=== PATIENT | female | born 1945 | race Caucasian/White ===

== ENCOUNTER 2021-02-18 05:38 | Outpatient (CLI) | payer MEDICARE ==
[~2021-02-18] VITALS: Ht 165.1 cm; Wt 62.6 kg
[2021-02-18] MEDS ORDERED: LISI-729 PO (09:58)
[2021-02-18] MEDS ORDERED: AMLO-250 PO (09:58)
[2021-02-18] MEDS ORDERED: ASPI-999 PO (09:58)
[2021-02-18] MEDS ORDERED: MTP25TSR PO (09:58)
== END 2021-02-18 10:33 | disposition home or self-care (01) ==
LOC: PREOP 05:38
PROVIDERS: ATTEND Surgery
DX: Z01.818 Encounter for other preprocedural examination (principal)

== ENCOUNTER 2021-02-25 10:12 | Day surgery (SDC) | payer MEDICARE ==
[~2021-02-25] VITALS: Ht 165.1 cm; Wt 62.6 kg
[2021-02-25] VITALS (14 sets, daily range): BP systolic 83–142; BP diastolic 49–76
[~2021-02-25 10:12] MED LIST: AMLO-250 PO; ASPI-999 PO; LISI-729 PO; MTP25TSR PO
[2021-02-25] MEDS ORDERED: NS IV 500 ML 500 ML IV PRN (10:30)
[2021-02-25] MEDS ORDERED: MIDAZOLAM 5 MG/5 ML (VERSED) VIAL IV ONE (10:30)
[2021-02-25] MEDS ORDERED: LIDOCAINE JELLY 2% 6 ML SYRINGE MM PRN (10:30)
[2021-02-25] MEDS ORDERED: fentaNYL INJ 100 MCG/2 ML AMP IVP ONE (10:30)
--- NOTE | 2021-02-25 10:31 | Conscious Sedation/ASA ---
Conscious Sedation Pre-Proced Time 10:15 ASA Score 2 For ASA 3 and 4: Consider anesthesia and medical clearance. Also, for patients with a history of failed moderate sedation consider anesthesia. Airway Lungs Heart ASA score ASA 1: a normal healthy patient ASA 2: a patient with a mild systemic disease (mid diabetes, controlled hypertension, obesity ASA 3: a patient with a severe systemic disease that limits activity (angina, COPD, prior Myocardial infarction) ASA 4: a patient with an incapacitating disease that is a constant threat to life (CHF, renal failure) ASA 5: a moribund patient not expected to survive 24 hrs. (ruptured aneurysm) ASA 6: a declared brain- patient whose organs are being harvested. For emergent operations, add the letter E after the classification Mallampati Classification Grade 2 Sedation Plan Analgesia, Amnesia, Plan communicated to team members, Discussed options with patient/fam, Discussed risks with patient/fam The patient is an appropriate candidate to undergo the planned procedure, sedation, and anesthesia. The patient immediately re-assessed prior to indication. ISAIAS HOFFMAN MD Feb 25, 2021 10:31
--- NOTE | 2021-02-25 10:31 | Progress Note-Pre Operative ---
Pre-Operative Progress Note H&P Reviewed The H&P was reviewed, patient examined and no changes noted. Date Seen by Provider: Feb 25, 2021 Time Seen by Provider: 10:15 Date H&P Reviewed: Feb 25, 2021 Time H&P Reviewed: 10:15 Pre-Operative Diagnosis: screening ISAIAS Pisano MD Feb 25, 2021 10:31
--- NOTE | 2021-02-25 10:32 | Discharge Inst-Surgical ---
D/C Lap Instructions-[facility] Follow Up Activity as tolerated High Fiber Diet 25g or more per day Avoid Alcohol, Caffeine, Spicy Spivey and Acid foods. Drink 64 fluid oz or more of fluids per day. Symptoms to Report: Fever over 101 degree F, Nausea/Vomiting If any problems/questions: Contact your physician or go to Emergency Room ISAIAS HOFFMAN MD Feb 25, 2021 10:32
[2021-02-25] MEDS ORDERED: NS IV 500 ML 500 ML ONE (10:34)
[2021-02-25] MEDS ORDERED: ONDANSETRON 4 MG (ZOFRAN) ORAL DISSOLVE TAB PO PRN (10:45)
[2021-02-25] MEDS ORDERED: ONDANSETRON 4 MG/2 ML (SDV) Z0FRAN IVP PRN (10:45)
[2021-02-25] MEDS ORDERED: fentaNYL INJ 100 MCG/2 ML AMP ONE (12:01)
[2021-02-25] MEDS ORDERED: MIDAZOLAM 5 MG/5 ML (VERSED) VIAL ONE (12:01)
--- NOTE | 2021-02-25 12:39 | Progress Note-Post Operative ---
Post-Operative Progess Note Surgeon (s)/Interior Decorator Paperhanging (s) Surgeon ISAIAS HOFFMAN MD Interior Decorator Paperhanging: none Pre-Operative Diagnosis screening colo Post-Operative Diagnosis mild chronic stage 2 ext and int hemorrhoids, diffuse melanosis coli. Procedure & Operative Findings Date of Procedure 02/25/21 Procedure Performed/Findings colonoscopy Anesthesia Type cs Estimated Blood Loss Estimated blood loss (mL): minimal Specimens/Packing Specimens Removed none ISAIAS HOFFMAN MD Feb 25, 2021 12:39
[2021-02-25] MEDS ORDERED: ONDANSETRON 4 MG (ZOFRAN) ORAL DISSOLVE TAB PO STA (14:01)
--- NOTE | 2021-02-25 18:55 | OPERATIVE REPORT ---
DATE OF SERVICE: 02/25/2021 ATTENDING PRIMARY CARE PHYSICIAN: Dr. Zaida Fontenot. PREOPERATIVE DIAGNOSIS: Screening colonoscopy. 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 PROCEDURE PERFORMED: Colonoscopy. SURGEON: Isaias Hoffman MD. ANESTHESIA: Conscious sedation. ESTIMATED BLOOD LOSS: Minimal. 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 DISPOSITION: The patient tolerated the procedure well. INDICATIONS FOR PROCEDURE: The patient is a 76-year-old female in need of a screening colonoscopy. Her last one was approximately 10 years ago. She does not report any major issues with diarrhea nor constipation as well as no red blood per rectum nor any dark tarry stools. She also does not report any family history of colon cancer. DESCRIPTION OF PROCEDURE: The patient was brought to the endoscopy suite and laid in the left lateral decubitus position. After adequate IV pain and sedative medications and conscious sedation anesthesia, a digital rectal examination was performed. Mild chronic stage II external and internal hemorrhoids were identified, which were not actively edematous nor inflamed and no bleeding. Normal sphincter tone was felt and there were no palpable masses. The endoscope was then intubated to the anus and rectum gently insufflated. The endoscope was then advanced through the valves of [place] of the rectum with no polyps or any neoplasms identified. 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 We then proceeded through the sigmoid colon, where no diverticulosis was identified. The endoscope was then advanced through the remainder of the descending, transverse and ascending colon to the cecum. These segments were normal. There were no polyps or any neoplasms identified. The endoscope was then slowly withdrawn while taking a second look and suctioning of residual air with no additional findings. The patient tolerated the procedure well. We will recommend continued medical management with cessation of laxative products and to incorporate fiber supplement, which should equal or exceed 25 to 30 grams daily to promote soft stools on a daily basis. There were no polyps or any neoplasms identified and if she is asymptomatic, she does not need another colonoscopy for another 10 years. Job ID: [id number] DocumentID: [id number] Dictated Date: 02/25/2021 12:36:19 Pretzel Twister Date: 02/25/2021 18:54:44 Dictated By: ISAIAS HOFFMAN MD
== END 2021-02-25 14:35 | disposition home or self-care (01) ==
LOC: ENDO 10:12
PROVIDERS: ATTEND Surgery
DX: Z12.11 Encounter for screening for malignant neoplasm of colon (principal); K64.1 Second degree hemorrhoids; K63.89 Other specified diseases of intestine; I10 Essential (primary) hypertension; Z90.49 Acquired absence of other specified parts of digestive tract; Z79.899 Other long term (current) drug therapy; Z79.82 Long term (current) use of aspirin